=== PATIENT | male | born 1955 ===

== ENCOUNTER 2024-12-09 11:45 | Inpatient (IN) | payer OTHER ==
[~2024-12-09] VITALS: Ht 175.3 cm; Wt 77.1 kg
[2024-12-09] MEDS ORDERED: WELLBUTRIN SR150 MG PO (13:09)
[2024-12-09] MEDS ORDERED: HORIZANT300 MG PO (13:10)
[2024-12-09] MEDS ORDERED: CLONAZEPAM0.5 MG PO (13:10)
[2024-12-09 13:16] VITALS: BP 147/78
[2024-12-15] MEDS ORDERED: BUPIVACAINE HCL 30 ML VIAL IJ ONE (14:45)
[2024-12-15] MEDS ORDERED: CEFAZOLIN SODIUM 1,000 MG VIAL IV ONE (14:45)
[2024-12-15] MEDS ORDERED: POLYMYXIN B SULFATE 500,000 U VIAL IJ ONE (14:45)
[2024-12-15] MEDS ORDERED: MORPHINE SULFATE 4 MG/ML CARTRIDGE IV ONE (15:00)
[2024-12-15] MEDS ORDERED: LIDOCAINE HCL 1%/EPINEPHRINE 20ML VIAL IJ ONE (15:00)
[2024-12-15] MEDS ORDERED: TRANEXAMIC ACID 100MG/1ML (1000MG) AMPUL IV ONE (15:00)
[2024-12-15] MEDS ORDERED: KETOROLAC TROMETHAMINE 60 MG VIAL IM ONE (15:00)
[2024-12-15] MEDS ORDERED: MORPHINE SULFATE 4 MG/ML CARTRIDGE IV PRN (16:45)
[2024-12-15] MEDS ORDERED: ONDANSETRON HCL 2 MG/ML VIAL IV PRN (16:45)
[2024-12-15] MEDS ORDERED: SODIUM CHLORIDE 0.45 % 1,000 ML IV SCH (16:45)
[2024-12-15] MEDS ORDERED: MORPHINE SULFATE 2 MG/ML CARTRIDGE IV NR (16:45)
[2024-12-15] MEDS ORDERED: CEFAZOLIN SODIUM 1,000 MG VIAL IV SCH (18:00)
[2024-12-15 21:10] VITALS: BP 126/81; O2SAT 95
[2024-12-16 01:35] VITALS: BP 116/69; O2SAT 100
[2024-12-16] MEDS ORDERED: ACETAMINOPHEN WITH CODEINE 1 UDTAB TABLET PO PRN (07:30)
[2024-12-16 08:00] VITALS: BP 115/69; O2SAT 98
[2024-12-16 08:21] LABS: BASO % 0.4 % (0.1-1.2); EOS # 0.24 (0.04-0.54); EOS % 3.5 % (0.7-7.0); LYMPH # 0.80 (1.18-3.74); LYMPH % 11.7 % (19.3-53.1); MEAN PLATELET VOLUME 11.50 fl (9.4-12.4); MONO # 0.52 (0.24-0.82); MONO % 7.6 % (4.7-12.5); NEUT # 5.20 (1.56-6.13); NEUT % 76.1 % (34.0-71.1); RED CELL DISTRIBUTION WIDTH 12.2 % (11.6-14.4)
[2024-12-16] MEDS ORDERED: RIVAROXABAN 10 MG TAB PO SCH (09:00)
[2024-12-16] MEDS ORDERED: BACITRACIN 28.35 GM OINT.TUBE TOP SCH (09:00)
[2024-12-16] MEDS ORDERED: SENNA/DOCUSATE SODIUM 1 TAB TABLET PO SCH (09:00)
[2024-12-16] MEDS ORDERED: IRON FUM,PS/FOLIC/BCOMP,C NO.9 1 CAP CAPSULE PO SCH (09:00)
[2024-12-16 12:47] LABS: BASO % 0.3 % (0.1-1.2); EOS # 0.10 (0.04-0.54); EOS % 1.1 % (0.7-7.0); LYMPH # 0.70 (1.18-3.74); LYMPH % 7.4 % (19.3-53.1); MEAN PLATELET VOLUME 11.50 fl (9.4-12.4); MONO # 0.48 (0.24-0.82); MONO % 5.1 % (4.7-12.5); NEUT # 8.02 (1.56-6.13); NEUT % 85.4 % (34.0-71.1); RED CELL DISTRIBUTION WIDTH 12.2 % (11.6-14.4)
[2024-12-16 13:16] LABS: COVID-19 AG NEGATIVE (NEGATIVE)
[2024-12-16 13:30] LABS: ALT/SGPT 29.0 U/L (12-78); AST/SGOT 26.0 U/L (15-37); BILIRUBIN TOTAL 0.45 mg/dL (0.3-1.2); BUN CREA RATIO 20.0 (7.0-25.0); CREATININE SERUM 0.93 mg/dL (0.70-1.30); GFR 81.04; GLOBULINA 2.8 G/DL (2.4-3.5); GLUCOSE FASTING 115.0 mg/dL (65-100); OSMOLALITY SERUM 283.0 MOSM/KG (275-295)
[2024-12-16 17:28] VITALS: BP 150/70; O2SAT 97
[2024-12-16] MEDS ORDERED: SULFAMETHOXAZOLE/TRIMETHOPRIM DS 1 TAB PO SCH (21:00)
[2024-12-17 02:28] VITALS: BP 100/59; O2SAT 99
[2024-12-17 06:46] LABS: BASO % 0.3 % (0.1-1.2); EOS # 0.31 (0.04-0.54); EOS % 4.1 % (0.7-7.0); LYMPH # 1.23 (1.18-3.74); LYMPH % 16.2 % (19.3-53.1); MEAN PLATELET VOLUME 11.30 fl (9.4-12.4); MONO # 0.84 (0.24-0.82); MONO % 11.1 % (4.7-12.5); NEUT # 5.12 (1.56-6.13); NEUT % 67.4 % (34.0-71.1); RED CELL DISTRIBUTION WIDTH 12.5 % (11.6-14.4)
[2024-12-17] MEDS ORDERED: Septra Ds Tablet PO (07:47)
[2024-12-17] MEDS ORDERED: INTEGRA PLUS C1 EACH PO (07:47)
[2024-12-17] MEDS ORDERED: XARELTO10 MG PO (07:47)
[2024-12-17] MEDS ORDERED: ACETAMINOPHEN-1 EAC2 PO (07:48)
[2024-12-17 08:00] VITALS: BP 113/71; O2SAT 98
== END 2024-12-17 16:10 | DRG 470 ==
LOC: SURH 12-15 11:45 → O/R 12-15 12:14 → SURH 12-15 12:14
PROVIDERS: ADMIT Orthopaedic Surgery Sports Medicine; ATTEND Orthopaedic Surgery Sports Medicine
PROC: 0SRB0JZ Replacement of Left Hip Joint with Synthetic Substitute, Open Approach (ICD-10-PCS; principal; 2024-12-15 15:30)
DX: M16.12 Unilateral primary osteoarthritis, left hip (principal)